=== PATIENT | female | born 1980 | race Caucasian/White ===

== ENCOUNTER 2019-03-22 08:35 | Inpatient (IN) | payer MEDICAID, OTHER, SELFPAY ==
[~2019-03-22] VITALS: Ht 152.4 cm; Wt 43.6 kg
--- NOTE | 2019-03-22 08:53 | NUR ---
PATIENT PRESENTS TO ED TODAY FOR AN, VOMITING, FEVER, CHEST PAIN STARTING THIS AM AT 0300. NAD NOTED, SIG OTHER AT BEDSIDE. DENIES MEDICAL HX. AWAITING MD ORDERS, CALL LIGHT WITHIN REACH. PATIENT REPORTS 10/10 HEAD/CHEST PAIN.
[2019-03-22] MEDS ORDERED: KETOROLAC 30 MG/1 ML ONE (09:21)
[2019-03-22] MEDS ORDERED: DIPHENHYDRAMINE 50 MG/ML, 1ML ONE (09:21)
[2019-03-22] MEDS ORDERED: METOCLOPRAMIDE 5 MG/ML, 2ML ONE (09:21)
[2019-03-22] MEDS ORDERED: SODIUM CHLORIDE 0.9% 1,000ML IVBOLUS ONE ×2 (09:30→16:00)
[2019-03-22] MEDS ORDERED: CEFTRIAXONE PMX 1GM/50ML 50 ML IVPB ONE (09:30)
[2019-03-22] MEDS ORDERED: METOCLOPRAMIDE 5 MG/ML, 2ML IVPush ONE (09:30)
[2019-03-22] MEDS ORDERED: DIPHENHYDRAMINE 50 MG/ML, 1ML IVPush ONE (09:30)
[2019-03-22] MEDS ORDERED: SODIUM CHLORIDE FLUSH 10ML SYR IVF ONE (09:30)
[2019-03-22] MEDS ORDERED: AZITHROMYCIN 500 MG in SODIUM CHLORIDE 0.9% 250 ML IVPB ONE (09:30)
[2019-03-22] MEDS ORDERED: KETOROLAC 30 MG/1 ML IVPush ONE (09:30)
--- NOTE | 2019-03-22 09:32 | NUR ---
BLOOD CULTURES X 2 DRAWN BY LAB. MEDICATIONS ADMINISTERED PER MD ORDER, ELECTRICAL TIMING DEVICE CALIBRATOR ON PATIENT, HR 120'S-130'S. LABS DRAWN, XRAY COMPLETED. AWAITING RESULTS. PATIENT WILL URINATE AFTER PAIN GOES DOWN TO COLLECT UA. NO ADDITIONAL NEEDS AT THIS TIME. SIG OTHER AT BEDSIDE. CALL LIGHT WITHIN REACH.
[2019-03-22 09:46] LABS: MEAN CORPUSCULAR HEMOGLOBIN 27.7 pg (27.0-34.8); MEAN CORPUSCULAR HGB CONC 32.7 g/dL (32.4-35.8); MEAN CORPUSCULAR VOLUME 84.9 fL (80-100); MEAN PLATELET VOLUME 11.3 fL (7.4-10.4); PLATELET COUNT 193 x10^3/uL (130-400); RED BLOOD COUNT 4.81 x10^6/uL (3.82-5.3); RED CELL DISTRIBUTION WIDTH 13.8 % (9.6-15.2)
[2019-03-22 09:53] LABS: ALANINE AMINOTRANSFERASE 31 U/L (12-78); ALBUMIN 3.6 g/dL (3.4-5.0); ANION GAP 10 mmol/L (5-15); CHLORIDE 108 mmol/L (98-107); CREATININE 0.46 mg/dL (0.55-1.02)
[2019-03-22 09:57] LABS: ALKALINE PHOSPHATASE 88 U/L (45-117); BILIRUBIN,TOTAL 1.1 mg/dL (0.2-1.0); TOTAL PROTEIN 6.9 g/dL (6.4-8.2)
[2019-03-22 09:58] LABS: RAPID INFLUENZA A Negative (Negative); RAPID INFLUENZA B Negative (Negative)
--- NOTE | 2019-03-22 09:58 | NUR ---
PATIENT AMBULATED TO BATHROOM WITH STEADY GAIT, UA COLLECTED AND SENT TO LAB. PATIENT REPORTS FEELING BETTER POST MEDS.
[2019-03-22] MEDS ORDERED: MORPHINE SULFATE 4 MG/ML, 1ML IVPush PRN (10:00)
[2019-03-22] MEDS ORDERED: CEFTRIAXONE PMX 1GM/50ML 50 ML ONE (10:01)
[2019-03-22 10:02] LABS: MD YES
[2019-03-22 10:03] LABS: <PLATELET ESTIMATE> ADEQUATE; <RBC MORPHOLOGY> NORMAL; BAND#(MANUAL) 2.05 x10^3/uL; BANDS%(MANUAL) 7 % (0-7); LARGE PLATELETS 1+; MONOS#(MANUAL) 0.88 x10^3/uL (0.3-2.7); MONOS% (MANUAL) 3 % (2-9); SEG#(MANUAL) 26.37 x10^3/uL (1.8-6.8); SEGS% (MANUAL) 90 % (42-75)
--- NOTE | 2019-03-22 10:04 | NUR ---
ABX ADMINISTERED PER MD ORDER, BLOOD CULTURES DRAWN PRIOR TO ABX ADMINISTERED. PATIENT SLEEPING IN [facility], NAD NOTED. VISIBLE CHEST RISE AND FALL. NO ADDITIONAL NEEDS AT THIS TIME.
--- NOTE | 2019-03-22 10:05 | NUR ---
NEW ORDERS FOR CT.
[2019-03-22 10:08] LABS: MICROSCOPIC NOT IND
[2019-03-22] MEDS ORDERED: NS + 40MEQ KCL 1,000 ML IV ONE ×2 (10:29→11:00)
[2019-03-22] MEDS ORDERED: SODIUM CHLORIDE 0.9% 1,000 ML IV SCH ×2 (10:37→18:30)
[2019-03-22 10:40] LABS: CULTURE INDICATED? NO
--- NOTE | 2019-03-22 10:43 | NUR ---
1ST ABX COMPLETED, 2ND ABX ADMINISTERED PER MD ORDER.
[2019-03-22] MEDS ORDERED: ACETAMINOPHEN 500 MG TABLET ONE (10:49)
--- NOTE | 2019-03-22 10:51 | NUR ---
[facility] AT BEDSIDE.
--- NOTE | 2019-03-22 10:52 | NUR ---
VS UPDATED IN CHART, TEMP 102.8, MD AWARE. TYLENOL ADMINISTERED PER MD ORDER. AWAITING BED ASSIGNMENT.
[2019-03-22] MEDS ORDERED: DOCUSATE 100 MG CAPSULE PO PRN (11:00)
[2019-03-22] MEDS ORDERED: IBUPROFEN 600 MG TABLET PO PRN (11:00)
[2019-03-22] MEDS ORDERED: hydrALAzine 20 MG/ML, 1ML IVPush PRN (11:00)
[2019-03-22] MEDS ORDERED: AZITHROMYCIN 500 MG in SODIUM CHLORIDE 0.9% 250 ML IV SCH (11:00)
[2019-03-22] MEDS ORDERED: CEFTRIAXONE PMX 1GM/50ML 50 ML IV SCH (11:00)
[2019-03-22] MEDS ORDERED: ACETAMINOPHEN 500 MG TABLET PO ONE (11:00)
[2019-03-22] MEDS ORDERED: LABETALOL 5MG/ML, 20ML IVPush PRN (11:00)
[2019-03-22] MEDS ORDERED: KETOROLAC 30 MG/1 ML IV PRN (11:00)
[2019-03-22] MEDS ORDERED: LIDODERM 5% PATCH TD PRN (11:00)
[2019-03-22] MEDS ORDERED: GUAIFENESIN/DM 200-20MG, 10ML UDC PO PRN (11:00)
[2019-03-22] MEDS ORDERED: ASA/APAP/ CAFFEINE TABLET PO PRN (11:00)
[2019-03-22 11:05] LABS: TROPONIN I 0.622 ng/mL (0.000-0.045)
--- NOTE | 2019-03-22 11:10 | NUR ---
REPORT TO STEVE ALCANTARA. + TROP, PATIENT ALSO C/O LEFT ARM PAIN AT THIS TIME, MD AWARE. PATIENT TO DUSTIN RN TO GO WITH.
[2019-03-22 11:15] LABS: HEMOGLOBIN A1C 5.5 % (4.2-6.3)
--- NOTE | 2019-03-22 11:29 | NUR ---
LEVEL OF CARE CHANGED TO TELE, PATIENT BACK FROM CT, HOME HEALTH OCCUPATIONAL THERAPIST ON PATIENT. PATIENT [id number]+OX4. AWAITING REPORT PRIOR TO TRANSFER UPSTAIRS.
[2019-03-22] MEDS ORDERED: OMNIPAQUE 350 MG/ML, 100ML BOTTLE ONE (11:31)
[2019-03-22] MEDS ORDERED: VANCOMYCIN 800 MG in SODIUM CHLORIDE 0.9% 250 ML IVPB SCH (11:37)
[2019-03-22 11:45] LABS: THYROID STIMULATING HORMONE < 0.005 mIU/L (0.358-3.740)
--- NOTE | 2019-03-22 11:46 | NUR ---
REPORT TO STEVE ALBA.
--- NOTE | 2019-03-22 11:57 | NUR ---
PATIENT TRANSFERRED/ADMITTED UPSTAIRS.
[2019-03-22] MEDS ORDERED: VANCOMYCIN PER PHARMACY MC PRN (12:00)
[2019-03-22] MEDS ORDERED: MAGNESIUM SULFATE PMX 2GM/50ML 50 ML IV ONE (12:00)
[2019-03-22 12:08] VITALS: BP 110/68
[2019-03-22] MEDS ORDERED: PHARMACOKINETIC MONITORING MC PRN (12:30)
[2019-03-22] MEDS ORDERED: PHARMACOKINETIC CONSULTATION MC ONE (12:30)
[2019-03-22] MEDS: PIPERACILLIN/TAZO/PMX 3.375GM 50 ML IV SCH ×2 (12:32→18:12)
[2019-03-22 12:36] LABS: AMPHETAMINE SCREEN, URINE Negative (Negative); BARBITURATE SCREEN, URINE Negative (Negative); BENZODIAZEPINE SCREEN, URINE Negative (Negative); CANNABINOID SCREEN, URINE Negative (Negative); COCAINE SCREEN, URINE Negative (Negative); METHADONE SCREEN, URINE Negative (Negative); OPIATE SCREEN, URINE Negative (Negative)
[2019-03-22] MEDS ORDERED: ASPIRIN 81 MG TABLET CHEW PO ONE (13:00)
[2019-03-22] MEDS: VANCOMYCIN 1,200 MG in SODIUM CHLORIDE 0.9% 250 ML IV SCH (13:16)
[2019-03-22] MEDS: ACETAMINOPHEN 325 MG TABLET PO PRN ×2 (14:01→20:32)
[2019-03-22 14:03] VITALS: BP 95/58
[2019-03-22 15:52] VITALS: BP 84/52
[2019-03-22 15:54] VITALS: BP 84/52
[2019-03-22 16:29] VITALS: BP 90/59
[2019-03-22] MEDS ORDERED: HEPARIN 25,000 UNITS/500ML PMX 500 ML IV PRN ×2 (16:30→17:30)
[2019-03-22] MEDS ORDERED: ALBUTEROL SULFATE 2.5 MG/3 ML NPPB PRN (17:00)
[2019-03-22] MEDS ORDERED: HEPARIN 5,000 UNITS/ML, 1ML IV PRN (17:30)
[2019-03-22] MEDS ORDERED: HEPARIN 5,000 UNITS/ML, 1ML IV ONE (17:30)
[2019-03-22] MEDS ORDERED: LORazepam 2 MG/ML, 1ML ONE (17:42)
[2019-03-22 17:50] LABS: TRIGLYCERIDES 58 mg/dL (50-200); VLDL CHOLESTEROL 12 mg/dL (0-25)
[2019-03-22 17:53] LABS: HDL CHOLESTEROL (DIRECT) 26 mg/dL (40-60); TROPONIN I 0.734 ng/mL (0.000-0.045)
[2019-03-22] MEDS: LORazepam 2 MG/ML, 1ML IVPush PRN (18:12)
[2019-03-22 18:15] LABS: CHOL/HDL RATIO 1.9; CHOLESTEROL, TOTAL < 50 mg/dL (140-239); HDL CHOL % 0 % (28-40); LDL CHOLESTEROL,CALCULATED 12 mg/dL (54-169); LDL/HDL RATIO 0.5 (0.5-3.0)
[2019-03-22] MEDS ORDERED: NOREPINEPHRINE 4 MG in SODIUM CHLORIDE 0.9% 246 ML IV PRN (18:30)
[2019-03-22] MEDS ORDERED: SODIUM CHLORIDE 0.9%, 500ML IVBOLUS ONE (18:30)
[2019-03-22] MEDS ORDERED: ASPIRIN 81 MG TABLET EC PO ONE (20:00)
[2019-03-22] MEDS: ATORVASTATIN 40 MG TABLET PO SCH (20:21)
[2019-03-22 22:47] LABS: TROPONIN I 0.878 ng/mL (0.000-0.045)
[2019-03-23] MEDS: PIPERACILLIN/TAZO/PMX 3.375GM 50 ML IV SCH ×4 (00:06→18:25)
[2019-03-23] MEDS ORDERED: SODIUM CHLORIDE 0.9%, 500ML IVBOLUS ONE (00:30)
[2019-03-23] MEDS: VANCOMYCIN 1,200 MG in SODIUM CHLORIDE 0.9% 250 ML IV SCH ×2 (00:36→12:29)
[2019-03-23] MEDS: HYDROcodone/APAP 5/325 TABLET PO PRN ×4 (00:40→19:42)
[2019-03-23 02:33] LABS: TROPONIN I 0.959 ng/mL (0.000-0.045)
[2019-03-23] MEDS: DEXMEDETOMIDINE 200 MCG in SODIUM CHLORIDE 0.9% 48 ML IV PRN ×2 (04:01→17:15)
[2019-03-23 04:04] LABS: MEAN CORPUSCULAR HGB CONC 33.8 g/dL (32.4-35.8); MEAN CORPUSCULAR VOLUME 85.8 fL (80-100); MEAN PLATELET VOLUME 11.1 fL (7.4-10.4); PLATELET COUNT 159 x10^3/uL (130-400); RED BLOOD COUNT 3.91 x10^6/uL (3.82-5.3); RED CELL DISTRIBUTION WIDTH 13.6 % (9.6-15.2)
[2019-03-23 04:10] LABS: ALANINE AMINOTRANSFERASE 41 U/L (12-78); ALBUMIN 2.1 g/dL (3.4-5.0); ANION GAP 7 mmol/L (5-15); CALCIUM 7.4 mg/dL (8.5-10.1); CHLORIDE 117 mmol/L (98-107)
[2019-03-23 04:18] LABS: ALKALINE PHOSPHATASE 49 U/L (45-117); CREATININE 0.42 mg/dL (0.55-1.02); FREE T4 (FREE THYROXINE) 3.67 ng/dL (0.76-1.46); HDL CHOLESTEROL (DIRECT) 23 mg/dL (40-60); TOTAL PROTEIN 4.5 g/dL (6.4-8.2); TRIGLYCERIDES 53 mg/dL (50-200); VLDL CHOLESTEROL 11 mg/dL (0-25)
[2019-03-23 04:19] LABS: CHOL/HDL RATIO 2.2; CHOLESTEROL, TOTAL < 50 mg/dL (140-239); HDL CHOL % 0 % (28-40); LDL CHOLESTEROL,CALCULATED 16 mg/dL (54-169); LDL/HDL RATIO 0.7 (0.5-3.0); THYROID STIMULATING HORMONE < 0.005 mIU/L (0.358-3.740)
[2019-03-23 04:21] LABS: MD YES
[2019-03-23 04:23] LABS: <PLATELET ESTIMATE> ADEQUATE; <RBC MORPHOLOGY> NORMAL; BAND#(MANUAL) 7.51 x10^3/uL; BANDS%(MANUAL) 29 % (0-7); LARGE PLATELETS 1+; LYMPHS% (MANUAL) 5 % (22-44); METAMYELOCYTES# (MANUAL) 0.52 x10^3/uL (0-0); METAMYELOCYTES% (MANUAL) 2 % (0-1); MONOS#(MANUAL) 0.52 x10^3/uL (0.3-2.7); MONOS% (MANUAL) 2 % (2-9); SEG#(MANUAL) 16.06 x10^3/uL (1.8-6.8); SEGS% (MANUAL) 62 % (42-75)
[2019-03-23] MEDS: HYDROCORTISONE 100 MG INJ. IVPush SCH ×3 (04:28→20:11)
[2019-03-23 05:00] VITALS: BP 120/68
[2019-03-23] MEDS: ASPIRIN 81 MG TABLET CHEW PO SCH (08:47)
[2019-03-23 09:28] LABS: TROPONIN I 0.629 ng/mL (0.000-0.045)
[2019-03-23] MEDS: PANTOPRAZOLE 40 MG IV IVPush SCH (09:30)
[2019-03-23] MEDS: METHIMAZOLE 5 MG TAB PO SCH ×2 (10:00→21:52)
[2019-03-23] MEDS ORDERED: SODIUM CHLORIDE 0.9% 1,000ML IV ONE (10:00)
[2019-03-23] MEDS ORDERED: POTASSIUM CHLORIDE 20 MEQ PACKET PO ONE (10:30)
[2019-03-23] MEDS: ENOXAPARIN 40 MG/0.4 ML SQ SCH (11:26)
[2019-03-23] MEDS: ACETAMINOPHEN 325 MG TABLET PO PRN (14:47)
[2019-03-23] MEDS: SODIUM CHLORIDE 0.9% 1,000 ML IV SCH (14:49)
[2019-03-23] MEDS: POTASSIUM CHLORIDE 20 MEQ PACKET PO SCH (21:52)
[2019-03-23] MEDS: ATORVASTATIN 40 MG TABLET PO SCH (21:52)
[2019-03-24] MEDS: PIPERACILLIN/TAZO/PMX 3.375GM 50 ML IV SCH ×4 (00:23→17:51)
[2019-03-24] MEDS: VANCOMYCIN 1,200 MG in SODIUM CHLORIDE 0.9% 250 ML IV SCH ×2 (01:10→13:08)
[2019-03-24] MEDS: SODIUM CHLORIDE 0.9% 1,000 ML IV SCH ×3 (01:10→20:59)
[2019-03-24] MEDS: HYDROCORTISONE 100 MG INJ. IVPush SCH ×3 (04:31→20:58)
[2019-03-24] MEDS: HYDROcodone/APAP 5/325 TABLET PO PRN ×3 (06:08→22:15)
[2019-03-24] MEDS: ASPIRIN 81 MG TABLET CHEW PO SCH (08:04)
[2019-03-24] MEDS: POTASSIUM CHLORIDE 20 MEQ PACKET PO SCH (08:05)
[2019-03-24] MEDS: PANTOPRAZOLE 40 MG IV IVPush SCH (08:05)
[2019-03-24] MEDS: DEXMEDETOMIDINE 200 MCG in SODIUM CHLORIDE 0.9% 48 ML IV PRN ×2 (09:16→17:51)
[2019-03-24] MEDS: SODIUM BICARBONATE 4.0%, 5ML NPPB SCH ×4 (10:00→22:10)
[2019-03-24] MEDS: ALBUTEROL SULFATE 2.5 MG/3 ML NPPB SCH ×4 (10:26→22:10)
[2019-03-24] MEDS: METHIMAZOLE 5 MG TAB PO SCH ×2 (10:52→20:58)
[2019-03-24] MEDS: ENOXAPARIN 40 MG/0.4 ML SQ SCH (10:52)
[2019-03-24] MEDS: DOXYCYCLINE 100 MG in DEXTROSE 5% 250 ML IV SCH ×2 (11:47→22:15)
[2019-03-24] MEDS ORDERED: FUROSEMIDE 40 MG/4 ML ONE (11:54)
[2019-03-24] MEDS ORDERED: FUROSEMIDE 40 MG/4 ML IV ONE (12:00)
[2019-03-24] MEDS ORDERED: IBUPROFEN 200 MG TABLET PO PRN (14:30)
[2019-03-24] MEDS: FUROSEMIDE 20 MG/2 ML IV SCH (16:40)
[2019-03-24] MEDS: ATORVASTATIN 40 MG TABLET PO SCH (20:58)
[2019-03-24] MEDS: VANCOMYCIN PMX 1GM/200ML 200 ML IVPB SCH (20:58)
[2019-03-24] MEDS ORDERED: POTASSIUM CHLORIDE 20 MEQ PACKET PO SCH (21:00)
[2019-03-25] MEDS: PIPERACILLIN/TAZO/PMX 3.375GM 50 ML IV SCH ×5 (00:04→23:51)
[2019-03-25] MEDS: ALBUTEROL SULFATE 2.5 MG/3 ML NPPB SCH ×6 (02:40→22:20)
[2019-03-25] MEDS: SODIUM BICARBONATE 4.0%, 5ML NPPB SCH ×3 (02:40→10:00)
[2019-03-25] MEDS: VANCOMYCIN PMX 1GM/200ML 200 ML IVPB SCH (03:58)
[2019-03-25] MEDS: HYDROCORTISONE 100 MG INJ. IVPush SCH ×3 (03:58→19:30)
[2019-03-25] MEDS: LORazepam 2 MG/ML, 1ML IVPush PRN (03:58)
[2019-03-25] MEDS: DEXMEDETOMIDINE 200 MCG in SODIUM CHLORIDE 0.9% 48 ML IV PRN (04:23)
[2019-03-25 04:59] LABS: ANION GAP 7 mmol/L (5-15); CALCIUM 7.4 mg/dL (8.5-10.1); CHLORIDE 114 mmol/L (98-107)
[2019-03-25 05:00] LABS: CREATININE 0.21 mg/dL (0.55-1.02)
[2019-03-25 05:11] LABS: MEAN CORPUSCULAR HEMOGLOBIN 28.8 pg (27.0-34.8); MEAN CORPUSCULAR HGB CONC 34.2 g/dL (32.4-35.8); MEAN CORPUSCULAR VOLUME 84.3 fL (80-100); RED BLOOD COUNT 3.58 x10^6/uL (3.82-5.3); RED CELL DISTRIBUTION WIDTH 13.9 % (9.6-15.2)
[2019-03-25 06:12] LABS: MD YES; MEAN PLATELET VOLUME 11.9 fL (7.4-10.4); PLATELET COUNT 162 x10^3/uL (130-400)
[2019-03-25 06:14] LABS: BAND#(MANUAL) 0.97 x10^3/uL; BANDS%(MANUAL) 7 % (0-7); LYMPH#(MANUAL) 0.97 x10^3/uL (1-3.4); LYMPHS% (MANUAL) 7 % (22-44); MONOS#(MANUAL) 0.83 x10^3/uL (0.3-2.7); MONOS% (MANUAL) 6 % (2-9); SEG#(MANUAL) 11.12 x10^3/uL (1.8-6.8); SEGS% (MANUAL) 80 % (42-75)
[2019-03-25 06:15] LABS: <RBC MORPHOLOGY> NORMAL
[2019-03-25 06:16] LABS: <PLATELET ESTIMATE> ADEQUATE
[2019-03-25 06:18] LABS: LARGE PLATELETS 1+; TOXIC GRAN 1+
[2019-03-25] MEDS ORDERED: POTASSIUM CHLORIDE 20 MEQ TAB.ER.PRT PO ONE (07:00)
[2019-03-25] MEDS ORDERED: MIDAZOLAM 1 MG/ML, 5ML IVPush ONE (08:15)
[2019-03-25] MEDS ORDERED: ETOMIDATE 20 MG/10 ML IVPush ONE (08:20)
[2019-03-25] MEDS ORDERED: LIDOCAINE-MPF 1%, 2ML ENDO PRN (09:00)
[2019-03-25] MEDS ORDERED: POTASSIUM CHLORIDE 10% 40 MEQ/30 ML UDC ONE ×2 (09:46→19:26)
[2019-03-25] MEDS: ASPIRIN 81 MG TABLET CHEW PO SCH (09:53)
[2019-03-25] MEDS: PANTOPRAZOLE 40 MG IV IVPush SCH (09:54)
[2019-03-25] MEDS: ENOXAPARIN 40 MG/0.4 ML SQ SCH (09:55)
[2019-03-25] MEDS: FUROSEMIDE 20 MG/2 ML IV SCH ×2 (09:55→17:06)
[2019-03-25] MEDS: POTASSIUM CHLORIDE 10% 20 MEQ/15 ML UDC PO SCH ×2 (09:57→19:30)
[2019-03-25] MEDS: METHIMAZOLE 5 MG TAB PO SCH ×2 (10:00→22:08)
[2019-03-25] MEDS: PROPOFOL 100 ML IV PRN ×4 (10:36→22:08)
[2019-03-25] MEDS: MORPHINE SULFATE 4 MG/ML, 1ML IVPush PRN ×4 (10:52→17:52)
[2019-03-25] MEDS: DOXYCYCLINE 100 MG in DEXTROSE 5% 250 ML IV SCH ×2 (11:55→22:09)
[2019-03-25] MEDS ORDERED: PROPOFOL 10 MG/ML, 100ML IV ONE (12:00)
[2019-03-25] MEDS ORDERED: ETOMIDATE 40 MG/20 ML ONE (12:00)
[2019-03-25] MEDS ORDERED: MIDAZOLAM 1 MG/ML, 5ML ONE (12:00)
[2019-03-25] MEDS: LINEZOLID PMX 600MG/300ML 300 ML IV SCH (14:42)
--- NOTE | 2019-03-25 15:22 | NUR ---
TF Recommendations: Promote full goal 55ml/hr Addendum: 03/26/19 at [address] Tf goal w/ propofol: Promote @ 50ml/hr off propofol: Promote @ 55ml/hr
[2019-03-25] MEDS: ATORVASTATIN 40 MG TABLET PO SCH (19:30)
[2019-03-25] MEDS: HYDROcodone/APAP 5/325 TABLET PO PRN (22:09)
[2019-03-26] MEDS: LINEZOLID PMX 600MG/300ML 300 ML IV SCH (02:05)
[2019-03-26] MEDS: ALBUTEROL SULFATE 2.5 MG/3 ML NPPB SCH ×6 (02:21→23:11)
[2019-03-26] MEDS: HYDROCORTISONE 100 MG INJ. IVPush SCH (03:29)
[2019-03-26] MEDS: PROPOFOL 100 ML IV PRN ×5 (03:33→22:03)
[2019-03-26] MEDS: MORPHINE SULFATE 4 MG/ML, 1ML IVPush PRN ×2 (03:33→13:17)
[2019-03-26 04:21] LABS: BASOPHILS # (AUTO) 0.02 x10^3/uL (0-0.1); BASOPHILS % (AUTO) 0 % (0-1); EOSINOPHILS # (AUTO) 0.03 x10^3/uL (0-0.4); EOSINOPHILS % (AUTO) 0 % (1-7); LYMPHOCYTES # (AUTO) 1.25 x10^3/uL (1-3.4); LYMPHOCYTES % (AUTO) 12 % (22-44); MD NO; MEAN CORPUSCULAR HEMOGLOBIN 28.7 pg (27.0-34.8); MEAN CORPUSCULAR HGB CONC 33.9 g/dL (32.4-35.8); MEAN CORPUSCULAR VOLUME 84.6 fL (80-100); MEAN PLATELET VOLUME 10.9 fL (7.4-10.4); MONOCYTES # (AUTO) 0.76 x10^3/uL (0.2-0.8); MONOCYTES % (AUTO) 8 % (2-9); NEUTROPHILS # (AUTO) 8.11 x10^3/uL (1.8-6.8); NEUTROPHILS % (AUTO) 80 % (42-75); PLATELET COUNT 166 x10^3/uL (130-400); RED BLOOD COUNT 3.65 x10^6/uL (3.82-5.3); RED CELL DISTRIBUTION WIDTH 13.5 % (9.6-15.2)
[2019-03-26 04:30] LABS: ANION GAP 6 mmol/L (5-15); CHLORIDE 109 mmol/L (98-107); CREATININE 0.41 mg/dL (0.55-1.02)
[2019-03-26] MEDS ORDERED: POTASSIUM CHLORIDE 20 MEQ TAB.ER.PRT PO ONE (05:30)
[2019-03-26] MEDS ORDERED: MAGNESIUM SULFATE PMX 2GM/50ML 50 ML IV ONE ×2 (05:30→08:00)
[2019-03-26] MEDS: PIPERACILLIN/TAZO/PMX 3.375GM 50 ML IV SCH ×3 (08:37→18:11)
[2019-03-26] MEDS: HYDROcodone/APAP 5/325 TABLET PO PRN ×2 (08:38→15:34)
[2019-03-26] MEDS: ASPIRIN 81 MG TABLET CHEW PO SCH (08:38)
[2019-03-26] MEDS: METHIMAZOLE 5 MG TAB PO SCH ×2 (08:38→20:03)
[2019-03-26] MEDS: POTASSIUM CHLORIDE 10% 40 MEQ/30 ML UDC PO SCH ×2 (08:38→20:02)
[2019-03-26] MEDS: PANTOPRAZOLE 40 MG IV IVPush SCH (08:38)
[2019-03-26] MEDS: ENOXAPARIN 40 MG/0.4 ML SQ SCH (11:01)
[2019-03-26] MEDS: DOXYCYCLINE 100 MG in DEXTROSE 5% 250 ML IV SCH (11:01)
[2019-03-26] MEDS: ATORVASTATIN 40 MG TABLET PO SCH (20:02)
[2019-03-27] MEDS: DOXYCYCLINE 100 MG in DEXTROSE 5% 250 ML IV SCH ×3 (00:23→22:12)
[2019-03-27] MEDS: MORPHINE SULFATE 4 MG/ML, 1ML IVPush PRN ×3 (00:32→15:22)
[2019-03-27] MEDS: PROPOFOL 100 ML IV PRN ×4 (01:07→22:12)
[2019-03-27] MEDS: PIPERACILLIN/TAZO/PMX 3.375GM 50 ML IV SCH ×4 (01:07→18:16)
[2019-03-27] MEDS: ALBUTEROL SULFATE 2.5 MG/3 ML NPPB SCH ×6 (02:30→22:54)
[2019-03-27 04:48] LABS: BASOPHILS # (AUTO) 0.03 x10^3/uL (0-0.1); BASOPHILS % (AUTO) 0 % (0-1); EOSINOPHILS % (AUTO) 1 % (1-7); LYMPHOCYTES # (AUTO) 2.38 x10^3/uL (1-3.4); LYMPHOCYTES % (AUTO) 24 % (22-44); MD NO; MEAN CORPUSCULAR HEMOGLOBIN 28.5 pg (27.0-34.8); MEAN CORPUSCULAR HGB CONC 33.7 g/dL (32.4-35.8); MEAN CORPUSCULAR VOLUME 84.8 fL (80-100); MEAN PLATELET VOLUME 11.1 fL (7.4-10.4); MONOCYTES # (AUTO) 0.47 x10^3/uL (0.2-0.8); MONOCYTES % (AUTO) 5 % (2-9); NEUTROPHILS # (AUTO) 7.05 x10^3/uL (1.8-6.8); NEUTROPHILS % (AUTO) 70 % (42-75); PLATELET COUNT 179 x10^3/uL (130-400); RED BLOOD COUNT 3.78 x10^6/uL (3.82-5.3)
[2019-03-27 05:06] LABS: ANION GAP 3 mmol/L (5-15); CALCIUM 8.1 mg/dL (8.5-10.1); CHLORIDE 112 mmol/L (98-107)
[2019-03-27 05:08] LABS: CREATININE 0.25 mg/dL (0.55-1.02)
[2019-03-27 07:46] LABS: FREE T4 (FREE THYROXINE) 0.91 ng/dL (0.76-1.46)
[2019-03-27] MEDS: ASPIRIN 81 MG TABLET CHEW PO SCH (08:06)
[2019-03-27] MEDS: PANTOPRAZOLE 40 MG IV IVPush SCH (08:06)
[2019-03-27] MEDS: POTASSIUM CHLORIDE 10% 40 MEQ/30 ML UDC PO SCH ×2 (08:06→19:48)
[2019-03-27] MEDS: ACETAMINOPHEN 325 MG TABLET PO PRN ×2 (08:06→19:48)
[2019-03-27] MEDS: METHIMAZOLE 5 MG TAB PO SCH ×2 (08:06→19:48)
[2019-03-27] MEDS ORDERED: LACTULOSE 20 GM/30 ML UDC PO PRN (08:30)
[2019-03-27] MEDS ORDERED: MIDAZOLAM 1 MG/ML, 5ML ONE (08:41)
[2019-03-27] MEDS: ENOXAPARIN 40 MG/0.4 ML SQ SCH (10:00)
[2019-03-27] MEDS ORDERED: MIDAZOLAM 1 MG/ML, 5ML IVPush ONE (10:00)
[2019-03-27] MEDS ORDERED: FUROSEMIDE 20 MG/2 ML IV ONE (10:01)
[2019-03-27] MEDS: FUROSEMIDE 20 MG/2 ML IV SCH (16:45)
[2019-03-27] MEDS: ATORVASTATIN 40 MG TABLET PO SCH (19:48)
[2019-03-28] MEDS: PIPERACILLIN/TAZO/PMX 3.375GM 50 ML IV SCH ×4 (01:26→19:44)
[2019-03-28] MEDS: PROPOFOL 100 ML IV PRN (01:26)
[2019-03-28] MEDS: ALBUTEROL SULFATE 2.5 MG/3 ML NPPB SCH ×2 (02:46→06:30)
[2019-03-28] MEDS: MORPHINE SULFATE 4 MG/ML, 1ML IVPush PRN (03:59)
[2019-03-28 04:43] LABS: BASOPHILS # (AUTO) 0.02 x10^3/uL (0-0.1); BASOPHILS % (AUTO) 0 % (0-1); EOSINOPHILS # (AUTO) 0.24 x10^3/uL (0-0.4); EOSINOPHILS % (AUTO) 3 % (1-7); LYMPHOCYTES # (AUTO) 1.74 x10^3/uL (1-3.4); LYMPHOCYTES % (AUTO) 21 % (22-44); MD NO; MEAN CORPUSCULAR HEMOGLOBIN 28.2 pg (27.0-34.8); MEAN CORPUSCULAR HGB CONC 33.2 g/dL (32.4-35.8); MEAN CORPUSCULAR VOLUME 84.9 fL (80-100); MEAN PLATELET VOLUME 10.8 fL (7.4-10.4); MONOCYTES # (AUTO) 0.13 x10^3/uL (0.2-0.8); MONOCYTES % (AUTO) 2 % (2-9); NEUTROPHILS # (AUTO) 6.26 x10^3/uL (1.8-6.8); NEUTROPHILS % (AUTO) 75 % (42-75); PLATELET COUNT 220 x10^3/uL (130-400); RED BLOOD COUNT 4.31 x10^6/uL (3.82-5.3); RED CELL DISTRIBUTION WIDTH 14.2 % (9.6-15.2)
[2019-03-28 04:53] LABS: CHLORIDE 107 mmol/L (98-107)
[2019-03-28 05:05] LABS: ANION GAP 7 mmol/L (5-15); CALCIUM 8.6 mg/dL (8.5-10.1); CREATININE 0.33 mg/dL (0.55-1.02); TRIGLYCERIDES 139 mg/dL (50-200)
[2019-03-28] MEDS: PANTOPRAZOLE 40 MG IV IVPush SCH (07:36)
[2019-03-28] MEDS: POTASSIUM CHLORIDE 10% 40 MEQ/30 ML UDC PO SCH (07:37)
[2019-03-28] MEDS: ASPIRIN 81 MG TABLET CHEW PO SCH (07:37)
[2019-03-28] MEDS: FUROSEMIDE 20 MG/2 ML IV SCH ×2 (07:37→19:44)
[2019-03-28] MEDS: ENOXAPARIN 40 MG/0.4 ML SQ SCH (10:09)
[2019-03-28] MEDS: METHIMAZOLE 5 MG TAB PO SCH ×2 (10:09→22:29)
[2019-03-28] MEDS: DOXYCYCLINE 100 MG in DEXTROSE 5% 250 ML IV SCH ×2 (12:25→22:29)
[2019-03-28] MEDS: ONDANSETRON ODT 4 MG PO PRN (18:21)
[2019-03-28] MEDS: POTASSIUM CHLORIDE 20 MEQ TAB.ER.PRT PO SCH (19:43)
[2019-03-28] MEDS: ATORVASTATIN 40 MG TABLET PO SCH (19:44)
[2019-03-29] MEDS: PIPERACILLIN/TAZO/PMX 3.375GM 50 ML IV SCH ×4 (03:40→22:24)
[2019-03-29 04:07] LABS: ANION GAP 5 mmol/L (5-15); CALCIUM 8.9 mg/dL (8.5-10.1); CHLORIDE 105 mmol/L (98-107); CREATININE 0.37 mg/dL (0.55-1.02)
[2019-03-29 04:11] LABS: BASOPHILS # (AUTO) 0.02 x10^3/uL (0-0.1); BASOPHILS % (AUTO) 0 % (0-1); EOSINOPHILS % (AUTO) 2 % (1-7); LYMPHOCYTES % (AUTO) 15 % (22-44); MD NO; MEAN CORPUSCULAR HEMOGLOBIN 28.4 pg (27.0-34.8); MEAN CORPUSCULAR HGB CONC 32.9 g/dL (32.4-35.8); MEAN CORPUSCULAR VOLUME 86.1 fL (80-100); MEAN PLATELET VOLUME 10.3 fL (7.4-10.4); MONOCYTES # (AUTO) 0.34 x10^3/uL (0.2-0.8); MONOCYTES % (AUTO) 3 % (2-9); NEUTROPHILS # (AUTO) 7.96 x10^3/uL (1.8-6.8); NEUTROPHILS % (AUTO) 79 % (42-75); PLATELET COUNT 258 x10^3/uL (130-400); RED BLOOD COUNT 4.37 x10^6/uL (3.82-5.3); RED CELL DISTRIBUTION WIDTH 14.1 % (9.6-15.2)
[2019-03-29] MEDS: FUROSEMIDE 20 MG/2 ML IV SCH (07:30)
[2019-03-29] MEDS: PANTOPRAZOLE 40 MG IV IVPush SCH (08:18)
[2019-03-29] MEDS: ASPIRIN 81 MG TABLET CHEW PO SCH (08:18)
[2019-03-29] MEDS: POTASSIUM CHLORIDE 20 MEQ TAB.ER.PRT PO SCH ×2 (08:18→20:35)
[2019-03-29] MEDS ORDERED: FUROSEMIDE 20 MG/2 ML IV ONE (09:00)
[2019-03-29] MEDS: METHIMAZOLE 5 MG TAB PO SCH ×2 (10:35→22:24)
[2019-03-29] MEDS: ENOXAPARIN 40 MG/0.4 ML SQ SCH (10:37)
[2019-03-29 11:29] VITALS: BP 103/68
[2019-03-29] MEDS: DOXYCYCLINE 100 MG in DEXTROSE 5% 250 ML IV SCH (13:37)
[2019-03-29 14:14] VITALS: BP 98/61
[2019-03-29] MEDS: ONDANSETRON ODT 4 MG PO PRN (16:04)
[2019-03-29 19:00] VITALS: BP 99/63
[2019-03-29] MEDS: ATORVASTATIN 40 MG TABLET PO SCH (20:35)
[2019-03-30] MEDS: DOXYCYCLINE 100 MG in DEXTROSE 5% 250 ML IV SCH ×3 (00:27→23:40)
[2019-03-30 00:31] VITALS: BP 103/61
[2019-03-30] MEDS: PIPERACILLIN/TAZO/PMX 3.375GM 50 ML IV SCH ×4 (04:25→23:01)
[2019-03-30 05:30] LABS: BASOPHILS # (AUTO) 0.01 x10^3/uL (0-0.1); BASOPHILS % (AUTO) 0 % (0-1); EOSINOPHILS # (AUTO) 0.12 x10^3/uL (0-0.4); EOSINOPHILS % (AUTO) 2 % (1-7); LYMPHOCYTES # (AUTO) 0.66 x10^3/uL (1-3.4); LYMPHOCYTES % (AUTO) 14 % (22-44); MD NO; MEAN CORPUSCULAR HEMOGLOBIN 28.2 pg (27.0-34.8); MEAN CORPUSCULAR HGB CONC 32.7 g/dL (32.4-35.8); MEAN CORPUSCULAR VOLUME 86.4 fL (80-100); MEAN PLATELET VOLUME 9.9 fL (7.4-10.4); MONOCYTES # (AUTO) 0.31 x10^3/uL (0.2-0.8); MONOCYTES % (AUTO) 6 % (2-9); NEUTROPHILS # (AUTO) 3.77 x10^3/uL (1.8-6.8); NEUTROPHILS % (AUTO) 78 % (42-75); PLATELET COUNT 246 x10^3/uL (130-400); RED BLOOD COUNT 4.28 x10^6/uL (3.82-5.3); RED CELL DISTRIBUTION WIDTH 14.1 % (9.6-15.2)
[2019-03-30 05:37] LABS: ANION GAP 7 mmol/L (5-15); CALCIUM 9.1 mg/dL (8.5-10.1); CHLORIDE 106 mmol/L (98-107)
[2019-03-30 05:38] LABS: CREATININE 0.44 mg/dL (0.55-1.02)
[2019-03-30 07:49] VITALS: BP 99/61
[2019-03-30] MEDS: METHIMAZOLE 5 MG TAB PO SCH ×2 (08:43→20:31)
[2019-03-30] MEDS: ASPIRIN 81 MG TABLET CHEW PO SCH (08:43)
[2019-03-30] MEDS: POTASSIUM CHLORIDE 20 MEQ TAB.ER.PRT PO SCH ×2 (08:43→20:31)
[2019-03-30] MEDS: PANTOPRAZOLE 40 MG IV IVPush SCH (08:43)
[2019-03-30] MEDS: ENOXAPARIN 40 MG/0.4 ML SQ SCH (08:44)
[2019-03-30 13:05] VITALS: BP 99/61
[2019-03-30 19:26] VITALS: BP 116/72
[2019-03-30] MEDS: ATORVASTATIN 40 MG TABLET PO SCH (20:31)
[2019-03-31 02:34] VITALS: BP 109/60
[2019-03-31] MEDS: PIPERACILLIN/TAZO/PMX 3.375GM 50 ML IV SCH ×4 (04:39→23:23)
[2019-03-31] MEDS ORDERED: PANTOPROZOLE 40MG TABLET PO SCH (06:00)
[2019-03-31 07:10] VITALS: BP 95/60
[2019-03-31 08:10] LABS: BASOPHILS # (AUTO) 0.03 x10^3/uL (0-0.1); BASOPHILS % (AUTO) 0 % (0-1); EOSINOPHILS % (AUTO) 1 % (1-7); LYMPHOCYTES # (AUTO) 0.88 x10^3/uL (1-3.4); LYMPHOCYTES % (AUTO) 13 % (22-44); MD NO; MEAN CORPUSCULAR HEMOGLOBIN 27.5 pg (27.0-34.8); MEAN CORPUSCULAR HGB CONC 31.9 g/dL (32.4-35.8); MEAN CORPUSCULAR VOLUME 86.2 fL (80-100); MEAN PLATELET VOLUME 9.9 fL (7.4-10.4); MONOCYTES # (AUTO) 0.63 x10^3/uL (0.2-0.8); MONOCYTES % (AUTO) 9 % (2-9); NEUTROPHILS # (AUTO) 5.14 x10^3/uL (1.8-6.8); NEUTROPHILS % (AUTO) 76 % (42-75); PLATELET COUNT 287 x10^3/uL (130-400); RED BLOOD COUNT 4.72 x10^6/uL (3.82-5.3); RED CELL DISTRIBUTION WIDTH 14.4 % (9.6-15.2)
[2019-03-31 08:17] LABS: ALANINE AMINOTRANSFERASE 96 U/L (12-78); ANION GAP 11 mmol/L (5-15); CALCIUM 9.7 mg/dL (8.5-10.1); CHLORIDE 106 mmol/L (98-107); CREATININE 0.49 mg/dL (0.55-1.02)
[2019-03-31 08:19] LABS: ALKALINE PHOSPHATASE 92 U/L (45-117); BILIRUBIN,TOTAL 0.3 mg/dL (0.2-1.0); TOTAL PROTEIN 7.4 g/dL (6.4-8.2)
[2019-03-31] MEDS: ENOXAPARIN 40 MG/0.4 ML SQ SCH (10:10)
[2019-03-31] MEDS: METHIMAZOLE 5 MG TAB PO SCH ×2 (10:10→20:42)
[2019-03-31] MEDS: ASPIRIN 81 MG TABLET CHEW PO SCH (10:10)
[2019-03-31] MEDS: POTASSIUM CHLORIDE 20 MEQ TAB.ER.PRT PO SCH (10:10)
[2019-03-31 12:10] VITALS: BP 102/74
[2019-03-31] MEDS ORDERED: LABETALOL 5 MG/ML SYRINGE IVPush PRN (15:30)
[2019-03-31 18:51] VITALS: BP 110/66
[2019-03-31] MEDS: ATORVASTATIN 40 MG TABLET PO SCH (20:42)
[2019-04-01 00:35] VITALS: BP 116/71
[2019-04-01] MEDS: PIPERACILLIN/TAZO/PMX 3.375GM 50 ML IV SCH ×2 (04:56→12:23)
[2019-04-01 06:03] LABS: BASOPHILS # (AUTO) 0.03 x10^3/uL (0-0.1); BASOPHILS % (AUTO) 0 % (0-1); EOSINOPHILS # (AUTO) 0.07 x10^3/uL (0-0.4); EOSINOPHILS % (AUTO) 1 % (1-7); LYMPHOCYTES # (AUTO) 1.18 x10^3/uL (1-3.4); LYMPHOCYTES % (AUTO) 15 % (22-44); MD NO; MEAN CORPUSCULAR HEMOGLOBIN 27.6 pg (27.0-34.8); MEAN CORPUSCULAR HGB CONC 31.8 g/dL (32.4-35.8); MEAN CORPUSCULAR VOLUME 86.7 fL (80-100); MEAN PLATELET VOLUME 9.9 fL (7.4-10.4); MONOCYTES # (AUTO) 0.87 x10^3/uL (0.2-0.8); MONOCYTES % (AUTO) 11 % (2-9); NEUTROPHILS # (AUTO) 5.86 x10^3/uL (1.8-6.8); NEUTROPHILS % (AUTO) 73 % (42-75); PLATELET COUNT 295 x10^3/uL (130-400); RED BLOOD COUNT 4.97 x10^6/uL (3.82-5.3); RED CELL DISTRIBUTION WIDTH 14.2 % (9.6-15.2)
[2019-04-01 06:17] LABS: ANION GAP 11 mmol/L (5-15); CALCIUM 9.6 mg/dL (8.5-10.1); CHLORIDE 105 mmol/L (98-107)
[2019-04-01 06:18] LABS: CREATININE 0.43 mg/dL (0.55-1.02)
[2019-04-01] MEDS: ASPIRIN 81 MG TABLET CHEW PO SCH (09:00)
[2019-04-01 09:30] VITALS: BP 107/75
[2019-04-01] MEDS: METHIMAZOLE 5 MG TAB PO SCH ×2 (10:00→22:13)
[2019-04-01] MEDS: ENOXAPARIN 40 MG/0.4 ML SQ SCH (10:30)
[2019-04-01 12:37] VITALS: BP 106/73
[2019-04-01] MEDS: CEFTRIAXONE PMX 2GM/50ML 50 ML IV SCH (15:12)
[2019-04-01 20:22] VITALS: BP 107/71
[2019-04-01] MEDS: ATORVASTATIN 40 MG TABLET PO SCH (22:13)
[2019-04-02] MEDS: MORPHINE SULFATE 4 MG/ML, 1ML IVPush PRN ×4 (00:28→14:57)
[2019-04-02 02:13] VITALS: BP 113/66
[2019-04-02 07:35] VITALS: BP 105/68
[2019-04-02] MEDS: METHIMAZOLE 5 MG TAB PO SCH ×2 (09:30→21:18)
[2019-04-02] MEDS: ASPIRIN 81 MG TABLET CHEW PO SCH (09:30)
[2019-04-02] MEDS: ENOXAPARIN 40 MG/0.4 ML SQ SCH (09:31)
[2019-04-02 10:45] VITALS: BP 122/82
[2019-04-02] MEDS: HYDROcodone/APAP 5/325 TABLET PO PRN (10:47)
[2019-04-02] MEDS ORDERED: KETOROLAC 30 MG/1 ML IVPush SCH (13:30)
[2019-04-02 13:39] LABS: ALBUMIN 2.9 g/dL (3.4-5.0); ANION GAP 6 mmol/L (5-15); CALCIUM 9.3 mg/dL (8.5-10.1); CHLORIDE 106 mmol/L (98-107); CREATININE 0.45 mg/dL (0.55-1.02)
[2019-04-02 13:41] LABS: ALANINE AMINOTRANSFERASE 60 U/L (12-78); ALKALINE PHOSPHATASE 81 U/L (45-117); BILIRUBIN,TOTAL 0.3 mg/dL (0.2-1.0); TOTAL PROTEIN 6.9 g/dL (6.4-8.2)
[2019-04-02 13:48] VITALS: BP 104/68
[2019-04-02] MEDS ORDERED: OMNIPAQUE 350 MG/ML, 100ML BOTTLE ONE (14:40)
[2019-04-02] MEDS: CEFTRIAXONE PMX 2GM/50ML 50 ML IV SCH (14:57)
[2019-04-02] MEDS ORDERED: KETOROLAC 30 MG/1 ML IV PRN (18:30)
[2019-04-02 20:25] VITALS: BP 96/61
[2019-04-02] MEDS: ATORVASTATIN 40 MG TABLET PO SCH (21:00)
[2019-04-03 02:36] VITALS: BP 92/59
[2019-04-03 05:41] LABS: BASOPHILS # (AUTO) 0.03 x10^3/uL (0-0.1); BASOPHILS % (AUTO) 1 % (0-1); EOSINOPHILS # (AUTO) 0.09 x10^3/uL (0-0.4); EOSINOPHILS % (AUTO) 1 % (1-7); LYMPHOCYTES # (AUTO) 1.13 x10^3/uL (1-3.4); LYMPHOCYTES % (AUTO) 18 % (22-44); MD NO; MEAN CORPUSCULAR HEMOGLOBIN 28.5 pg (27.0-34.8); MEAN CORPUSCULAR HGB CONC 32.9 g/dL (32.4-35.8); MEAN CORPUSCULAR VOLUME 86.8 fL (80-100); MEAN PLATELET VOLUME 9.9 fL (7.4-10.4); MONOCYTES # (AUTO) 0.65 x10^3/uL (0.2-0.8); MONOCYTES % (AUTO) 10 % (2-9); NEUTROPHILS # (AUTO) 4.57 x10^3/uL (1.8-6.8); NEUTROPHILS % (AUTO) 71 % (42-75); PLATELET COUNT 357 x10^3/uL (130-400); RED BLOOD COUNT 4.26 x10^6/uL (3.82-5.3); RED CELL DISTRIBUTION WIDTH 14.3 % (9.6-15.2)
[2019-04-03 05:49] LABS: ALANINE AMINOTRANSFERASE 50 U/L (12-78); ALBUMIN 2.8 g/dL (3.4-5.0); ANION GAP 7 mmol/L (5-15); CALCIUM 9.1 mg/dL (8.5-10.1); CHLORIDE 108 mmol/L (98-107)
[2019-04-03 05:52] LABS: ALKALINE PHOSPHATASE 77 U/L (45-117); BILIRUBIN,TOTAL 0.6 mg/dL (0.2-1.0); CREATININE 0.38 mg/dL (0.55-1.02); TOTAL PROTEIN 6.7 g/dL (6.4-8.2)
[2019-04-03 08:19] VITALS: BP 97/63
[2019-04-03] MEDS: METHIMAZOLE 5 MG TAB PO SCH ×2 (09:41→20:24)
[2019-04-03] MEDS: ASPIRIN 81 MG TABLET CHEW PO SCH (09:41)
[2019-04-03] MEDS: ENOXAPARIN 40 MG/0.4 ML SQ SCH (09:42)
[2019-04-03 13:59] VITALS: BP 105/65
[2019-04-03] MEDS: CEFTRIAXONE PMX 2GM/50ML 50 ML IV SCH (14:31)
[2019-04-03 19:20] VITALS: BP 116/75
[2019-04-03] MEDS: ATORVASTATIN 40 MG TABLET PO SCH (20:24)
[2019-04-04 02:41] VITALS: BP 94/61
[2019-04-04 05:33] LABS: BASOPHILS # (AUTO) 0.03 x10^3/uL (0-0.1); BASOPHILS % (AUTO) 1 % (0-1); EOSINOPHILS # (AUTO) 0.11 x10^3/uL (0-0.4); EOSINOPHILS % (AUTO) 2 % (1-7); LYMPHOCYTES % (AUTO) 25 % (22-44); MD NO; MEAN CORPUSCULAR HEMOGLOBIN 28.4 pg (27.0-34.8); MEAN CORPUSCULAR HGB CONC 32.4 g/dL (32.4-35.8); MEAN CORPUSCULAR VOLUME 87.6 fL (80-100); MEAN PLATELET VOLUME 9.8 fL (7.4-10.4); MONOCYTES # (AUTO) 0.53 x10^3/uL (0.2-0.8); MONOCYTES % (AUTO) 10 % (2-9); NEUTROPHILS # (AUTO) 3.54 x10^3/uL (1.8-6.8); NEUTROPHILS % (AUTO) 63 % (42-75); PLATELET COUNT 394 x10^3/uL (130-400); RED BLOOD COUNT 4.27 x10^6/uL (3.82-5.3); RED CELL DISTRIBUTION WIDTH 13.9 % (9.6-15.2)
[2019-04-04 05:43] LABS: ANION GAP 7 mmol/L (5-15); CALCIUM 9.4 mg/dL (8.5-10.1); CHLORIDE 111 mmol/L (98-107); CREATININE 0.34 mg/dL (0.55-1.02)
[2019-04-04] MEDS: ASPIRIN 81 MG TABLET CHEW PO SCH (08:36)
[2019-04-04] MEDS: ENOXAPARIN 40 MG/0.4 ML SQ SCH (10:30)
[2019-04-04 10:44] VITALS: BP 91/58
[2019-04-04] MEDS: METHIMAZOLE 5 MG TAB PO SCH (10:47)
[2019-04-04 13:35] VITALS: BP 92/59
[2019-04-04] MEDS: CEFTRIAXONE PMX 2GM/50ML 50 ML IV SCH (14:17)
[2019-04-04] MEDS ORDERED: ATOR40TA78 PO (16:57)
[2019-04-04] MEDS ORDERED: CELE200C PO (16:57)
[2019-04-04] MEDS ORDERED: ENOX40SY4 SQ (16:57)
[2019-04-04] MEDS ORDERED: LIDO700A20 TD (16:57)
[2019-04-04] MEDS ORDERED: GUAI5SYR PO (16:57)
[2019-04-04] MEDS ORDERED: ASPI-515 PO (16:57)
[2019-04-04] MEDS ORDERED: METH5TAB6 PO (16:57)
[2019-04-04] MEDS ORDERED: CEFT2FRO2 IV (16:57)
[2019-04-04] MEDS ORDERED: ACET325T14 PO (16:57)
== END 2019-04-04 17:15 | DRG 871 ==
LOC: ED 09:46 → EDIP 10:37 → 5SO 11:59 → CCU 17:17 → 3NE 03-29 11:13
PROVIDERS: ADMIT Internal Medicine; ATTEND Internal Medicine
PROC: 02HV33Z Insertion of Infusion Device into Superior Vena Cava, Percutaneous Approach (ICD-10-PCS; principal; 2019-03-22)
PROC: B548ZZA Ultrasonography of Superior Vena Cava, Guidance (ICD-10-PCS; 2019-03-22)
PROC: 5A1945Z Respiratory Ventilation, 24-96 Consecutive Hours (ICD-10-PCS; 2019-03-22)
PROC: 0BH17EZ Insertion of Endotracheal Airway into Trachea, Via Natural or Artificial Opening (ICD-10-PCS; 2019-03-22)
PROC: 0B9J8ZX Drainage of Left Lower Lung Lobe, Via Natural or Artificial Opening Endoscopic, Diagnostic (ICD-10-PCS; 2019-03-25)
PROC: 0B9C8ZX Drainage of Right Upper Lung Lobe, Via Natural or Artificial Opening Endoscopic, Diagnostic (ICD-10-PCS; 2019-03-25)
PROC: 0B9F8ZX Drainage of Right Lower Lung Lobe, Via Natural or Artificial Opening Endoscopic, Diagnostic (ICD-10-PCS; 2019-03-25)
PROC: 0BCB8ZZ Extirpation of Matter from Left Lower Lobe Bronchus, Via Natural or Artificial Opening Endoscopic (ICD-10-PCS; 2019-03-27)
PROC: 0BC68ZZ Extirpation of Matter from Right Lower Lobe Bronchus, Via Natural or Artificial Opening Endoscopic (ICD-10-PCS; 2019-03-27)
DX: A41.9 Sepsis, unspecified organism (principal); J18.1 Lobar pneumonia, unspecified organism; J96.01 Acute respiratory failure with hypoxia; R65.21 Severe sepsis with septic shock; E05.91 Thyrotoxicosis, unspecified with thyrotoxic crisis or storm; I21.A1 Myocardial infarction type 2; D80.1 Nonfamilial hypogammaglobulinemia; E46 Unspecified protein-calorie malnutrition; Z68.1 Body mass index [BMI] 19.9 or less, adult; J90 Pleural effusion, not elsewhere classified; Z99.11 Dependence on respirator [ventilator] status; D63.8 Anemia in other chronic diseases classified elsewhere; E83.42 Hypomagnesemia; E86.0 Dehydration; E86.1 Hypovolemia; E87.6 Hypokalemia; F17.210 Nicotine dependence, cigarettes, uncomplicated; F41.9 Anxiety disorder, unspecified; Z79.82 Long term (current) use of aspirin; Z83.3 Family history of diabetes mellitus
CPT/HCPCS: 36415; 36556; 36600; 84145; 87400; 87449; 99291; J7613; 31622; 31624; 71045; 71260; 71275; 76536; 76700; 80048; 80053; 80061; 80202; 80307; 81003; 82533; 82784; 82787; 82803; 83036; 83605; 83735; 83880; 84100; 84439; 84443; 84445; 84478; 84481; 84484; 84703; 85025; 85520; 85651; 86140; 86376; 86631; 86632; 86635; 86738; 87040; 87070; 87081; 87102; 87205; 87254; 87633; 93005; 93306; 94002; 94003; 94640; 94667; 94668; 96365; 96367; G0378; J0456; J0696; J1644; J1650; J1885; J1940; J2020; J2250; J2543; J2704; J3370; J7060; Q0162; Q9967; C9113; J1200; J1720; J2060; J2270; J2765; J3475; J3480; J7030; J7040; J7050

== ENCOUNTER 2019-04-17 15:31 | Emergency (ER) | payer MEDICAID ==
[~2019-04-17] VITALS: Ht 152.4 cm; Wt 49.9 kg
[~2019-04-17 15:31] MED LIST: ACET325T14 PO; ASPI-515 PO; ATOR40TA78 PO; CEFT2FRO2 IV; CELE200C PO; ENOX40SY4 SQ; GUAI5SYR PO; LIDO700A20 TD; METH5TAB6 PO
[2019-04-17 16:03] LABS: BASOPHILS # (AUTO) 0.03 x10^3/uL (0-0.1); BASOPHILS % (AUTO) 1 % (0-1); EOSINOPHILS # (AUTO) 0.12 x10^3/uL (0-0.4); EOSINOPHILS % (AUTO) 3 % (1-7); LYMPHOCYTES # (AUTO) 1.91 x10^3/uL (1-3.4); LYMPHOCYTES % (AUTO) 37 % (22-44); MD NO; MEAN CORPUSCULAR HEMOGLOBIN 28.3 pg (27.0-34.8); MEAN CORPUSCULAR HGB CONC 32.2 g/dL (32.4-35.8); MEAN CORPUSCULAR VOLUME 87.9 fL (80-100); MEAN PLATELET VOLUME 10.2 fL (7.4-10.4); MONOCYTES # (AUTO) 0.47 x10^3/uL (0.2-0.8); MONOCYTES % (AUTO) 9 % (2-9); NEUTROPHILS # (AUTO) 2.56 x10^3/uL (1.8-6.8); NEUTROPHILS % (AUTO) 50 % (42-75); PLATELET COUNT 170 x10^3/uL (130-400); RED BLOOD COUNT 3.99 x10^6/uL (3.82-5.3); RED CELL DISTRIBUTION WIDTH 15.7 % (9.6-15.2)
[2019-04-17 16:13] LABS: ALANINE AMINOTRANSFERASE 72 U/L (12-78); ALBUMIN 3.3 g/dL (3.4-5.0); ANION GAP 10 mmol/L (5-15); CALCIUM 8.3 mg/dL (8.5-10.1); CHLORIDE 112 mmol/L (98-107); CREATININE 0.46 mg/dL (0.55-1.02)
[2019-04-17 16:17] LABS: ALKALINE PHOSPHATASE 89 U/L (45-117); BILIRUBIN,TOTAL 0.3 mg/dL (0.2-1.0); TOTAL PROTEIN 6.5 g/dL (6.4-8.2)
--- NOTE | 2019-04-17 16:34 | NUR ---
ASSISTANT TERMINAL MANAGER: PT TO ROOM FROM LOBBY VIA W/C
--- NOTE | 2019-04-17 16:41 | NUR ---
FIRST CONTACT WITH PATIENT, PATIENT PRESENTS TO ED TODAY FOR BILAT LEG PAIN/SWELLING STARTING TODAY 1400, R>L. PETECHIAE RASH NOTED TO BILAT LOWER EXT, CMS INTACT, US/LAB RESULTS BACK, MD AT BEDSIDE, AWAITING FURTHER ORDERS. AKILA, FAMILY AT BEDSIDE, MARKETING PLANNING MANAGER ON PATIENT. CALL LIGHT WITHIN REACH.
[2019-04-17] MEDS ORDERED: ONDANSETRON ODT 4 MG ONE (17:00)
[2019-04-17] MEDS ORDERED: KETOROLAC 30 MG/1 ML ONE (17:00)
[2019-04-17] MEDS ORDERED: KETOROLAC 30 MG/1 ML IM ONE (17:00)
[2019-04-17] MEDS ORDERED: ONDANSETRON ODT 4 MG PO ONE (17:00)
[2019-04-17] MEDS ORDERED: MELO7.5T31 PO (17:05)
[2019-04-17] MEDS ORDERED: METH5TAB6 PO (17:05)
[2019-04-17 17:06] VITALS: BP 153/93
[2019-04-17] MEDS ORDERED: ATOR-2 PO (17:06)
--- NOTE | 2019-04-17 17:25 | NUR ---
TASK RN: Patient/Caregiver given discharge instructions and they have confirmed that they understand the instructions. Patient ambulatory to wheelchair
== END 2019-04-17 17:41 | disposition home or self-care (01) ==
LOC: ED 17:07
DX: M79.661 Pain in right lower leg (principal); M79.662 Pain in left lower leg; M79.652 Pain in left thigh; M79.651 Pain in right thigh
CPT/HCPCS: 36415; 80053; 83880; 84703; 85025; 93970; 96372; 99284; J1885; Q0162